=== PATIENT | male | born 1950 | race Caucasian/White ===

== ENCOUNTER 2017-06-13 14:34 | Outpatient (CLI) | payer MEDICARE, OTHER | END 2017-06-13 14:35 | disposition home or self-care (01) | DRG 554 | LOC: CONVCARE 14:34 | PROVIDERS: ATTEND Orthopaedic Surgery | DX: M17.0 Bilateral primary osteoarthritis of knee (principal) | CPT/HCPCS: 73564 ==

== ENCOUNTER 2017-07-04 10:03 | Inpatient (IN) | payer OTHER, MEDICARE ==
[2017-07-04] MEDS ORDERED: LACTATED RINGERS 1,000 ML IV ONE (11:00)
[2017-07-04] MEDS ORDERED: SCOPOLAMINE 1.5MG PATCH TD SCH (11:00)
[2017-07-04] MEDS: SODIUM CHLORIDE 0.9% FLUSH 10 ML SOL IV PRN (11:04)
[2017-07-04] MEDS ORDERED: LACTATED RINGERS 1,000 ML IV SCH (12:00)
[2017-07-04] MEDS ORDERED: PROPOFOL 500 MG/50 ML EMU IV ONE (12:10)
[2017-07-04] MEDS ORDERED: LIDOCAINE HCL 1% MPF SOL ONE (12:12)
[2017-07-04] MEDS ORDERED: MIDAZOLAM 2 MG/2 ML SOL ONE ×2 (12:13→14:57)
[2017-07-04] MEDS ORDERED: ONDANSETRON HCL 4 MG/2 ML SOL ONE (12:17)
[2017-07-04] MEDS ORDERED: METOCLOPRAMIDE HYDROCHLORIDE 5 MG/ML SOL ONE (12:17)
[2017-07-04] MEDS ORDERED: DEXAMETHASONE 20 MG/5 ML (4 MG/ML SOL) ONE (12:17)
[2017-07-04] MEDS ORDERED: HYDROMORPHONE 1 MG/ML SYRINGE ONE (12:18)
[2017-07-04] MEDS ORDERED: SODIUM CHLORIDE 20 ML 40 ML ONE (12:52)
[2017-07-04] MEDS ORDERED: CEFAZOLIN SODIUM 1 GM PDS ONE ×3 (13:48→21:51)
[2017-07-04] MEDS ORDERED: KETAMINE HYDROCHLORIDE 50 MG/ML SOL ONE (14:34)
[2017-07-04] MEDS: TRANEXAMIC ACID 100 MG/ML SOL ONE ×2 (14:38→16:30)
[2017-07-04] MEDS: BUPIVACAINE LIPOSOME 20 ML SUS ONE ×2 (14:42→16:00)
[2017-07-04] MEDS ORDERED: ONDANSETRON HCL 4 MG/2 ML SOL IV PRN (15:05)
[2017-07-04] MEDS ORDERED: ALUMINUM/MAGNESIUM 30 ML SUS PO PRN (15:05)
[2017-07-04] MEDS ORDERED: TEMAZEPAM 15MG 15 MG CAP PO PRN (15:05)
[2017-07-04] MEDS ORDERED: DIPHENHYDRAMINE 50 MG/ML SOL IV PRN (15:05)
[2017-07-04] MEDS ORDERED: FLEET ENEMA PR PRN (15:05)
[2017-07-04] MEDS ORDERED: BISACODYL 10 MG SUP PR PRN (15:05)
[2017-07-04] MEDS ORDERED: MORPHINE SULFATE 10 MG/ML SOL IM PRN (15:05)
[2017-07-04] MEDS ORDERED: ONDANSETRON 4 MG ODT BU PRN (15:05)
[2017-07-04] MEDS ORDERED: SODIUM CHLORIDE 0.9% 500 ML 500 ML IV PRN (15:05)
[2017-07-04] MEDS ORDERED: LORATADINE 10 MG TAB PO PRN (15:12)
[2017-07-04] MEDS ORDERED: HYDROMORPHONE 1 MG/ML SYRINGE IV PRN (15:30)
[2017-07-04] MEDS ORDERED: PROPOFOL 10 MG/ML EMU IV ONE (15:52)
[2017-07-04] MEDS: DEXTROSE/SALINE 0.45% 1,000 ML IV SCH ×2 (18:14)
[2017-07-04] MEDS: SODIUM CHLORIDE 0.9% FLUSH 10 ML SOL IV SCH (19:02)
[2017-07-04] MEDS: METOPROLOL TARTRATE 50 MG TAB PO SCH (20:37)
[2017-07-04] MEDS: SENNOSIDES A AND B 8.6 MG TAB PO SCH (20:37)
[2017-07-04] MEDS: FINASTERIDE 5 MG TAB PO SCH (20:38)
[2017-07-04] MEDS ORDERED: SODIUM CHLORIDE 0.9% 100 ML 100 ML IV ONE (21:51)
[2017-07-04] MEDS: APAP/OXYCODONE 325/5 TAB PO PRN (22:09)
[2017-07-04] MEDS: CEFAZOLIN SODIUM 1 GM PDS 2 GM in SODIUM CHLORIDE 0.9% 100 ML 100 ML IV SCH (22:09)
[2017-07-04] MEDS: TAMSULOSIN HYDROCHLORIDE 0.4 MG CAP PO SCH (22:10)
[2017-07-05] MEDS: SODIUM CHLORIDE 0.9% FLUSH 10 ML SOL IV SCH ×5 (00:13→23:45)
[2017-07-05] MEDS: APAP/OXYCODONE 325/5 TAB PO PRN ×7 (01:13→23:47)
[2017-07-05] MEDS ORDERED: SODIUM CHLORIDE 0.9% 100 ML 100 ML IV ONE (04:08)
[2017-07-05] MEDS ORDERED: CEFAZOLIN SODIUM 1 GM PDS ONE (04:08)
[2017-07-05] MEDS: DEXTROSE/SALINE 0.45% 1,000 ML IV SCH ×2 (05:01→16:19)
[2017-07-05] MEDS: CEFAZOLIN SODIUM 1 GM PDS 2 GM in SODIUM CHLORIDE 0.9% 100 ML 100 ML IV SCH (06:05)
[2017-07-05 07:25] LABS: MEAN CORPUSCULAR HGB CONC 34.8 gm/dl (32.0-36.0)
[2017-07-05] MEDS: RIVAROXABAN 10 MG TAB PO SCH (08:19)
[2017-07-05] MEDS: [UNRECOGNIZED DRUG - OTHER] PO SCH (08:19)
[2017-07-05] MEDS: CALCIUM CARBONATE 500 MG TAB PO SCH (08:19)
[2017-07-05] MEDS ORDERED: METOPROLOL TARTRATE 50 MG TAB PO SCH (09:00)
[2017-07-05] MEDS ORDERED: FINASTERIDE 5 MG PO SCH (09:00)
[2017-07-05] MEDS: METOPROLOL TARTRATE 50 MG TAB PO SCH (18:51)
[2017-07-05] MEDS: TAMSULOSIN HYDROCHLORIDE 0.4 MG CAP PO SCH (20:01)
[2017-07-05] MEDS: SENNOSIDES A AND B 8.6 MG TAB PO SCH (20:01)
[2017-07-05] MEDS: FINASTERIDE 5 MG TAB PO SCH (20:01)
[2017-07-06] MEDS: APAP/OXYCODONE 325/5 TAB PO PRN ×7 (03:41→22:31)
[2017-07-06] MEDS: SODIUM CHLORIDE 0.9% FLUSH 10 ML SOL IV SCH ×2 (07:18→15:13)
[2017-07-06] MEDS: [UNRECOGNIZED DRUG - OTHER] PO SCH (08:45)
[2017-07-06] MEDS: CALCIUM CARBONATE 500 MG TAB PO SCH (08:46)
[2017-07-06] MEDS: RIVAROXABAN 10 MG TAB PO SCH (08:46)
[2017-07-06] MEDS: DIAZEPAM 5 MG TAB PO PRN (08:48)
[2017-07-06] MEDS: MAGNESIUM HYDROXIDE 30 ML SUS PO PRN (08:48)
[2017-07-06] MEDS ORDERED: SODIUM CHLORIDE 0.9% 250 ML 250 ML IV ONE (16:30)
[2017-07-06] MEDS: METOPROLOL TARTRATE 50 MG TAB PO SCH (17:14)
[2017-07-06] MEDS: FINASTERIDE 5 MG TAB PO SCH (20:18)
[2017-07-06] MEDS: SENNOSIDES A AND B 8.6 MG TAB PO SCH (20:18)
[2017-07-06] MEDS: TAMSULOSIN HYDROCHLORIDE 0.4 MG CAP PO SCH (20:19)
[2017-07-07] MEDS: APAP/OXYCODONE 325/5 TAB PO PRN ×6 (02:41→20:34)
[2017-07-07 07:32] LABS: MEAN CORPUSCULAR HGB CONC 34.5 gm/dl (32.0-36.0)
[2017-07-07] MEDS: RIVAROXABAN 10 MG TAB PO SCH (08:18)
[2017-07-07] MEDS: CALCIUM CARBONATE 500 MG TAB PO SCH (08:18)
[2017-07-07] MEDS: [UNRECOGNIZED DRUG - OTHER] PO SCH (08:18)
[2017-07-07] MEDS: DIAZEPAM 5 MG TAB PO PRN ×2 (08:47→12:11)
[2017-07-07] MEDS: METOPROLOL TARTRATE 50 MG TAB PO SCH (17:12)
[2017-07-07] MEDS: FINASTERIDE 5 MG TAB PO SCH (20:34)
[2017-07-07] MEDS: TAMSULOSIN HYDROCHLORIDE 0.4 MG CAP PO SCH (20:34)
[2017-07-07] MEDS: SENNOSIDES A AND B 8.6 MG TAB PO SCH (20:34)
[2017-07-07] MEDS: SODIUM CHLORIDE 0.9% FLUSH 10 ML SOL IV PRN (20:41)
[2017-07-08] MEDS: APAP/OXYCODONE 325/5 TAB PO PRN ×5 (02:09→21:04)
[2017-07-08] MEDS: [UNRECOGNIZED DRUG - OTHER] PO SCH (08:50)
[2017-07-08] MEDS: MAGNESIUM HYDROXIDE 30 ML SUS PO PRN (08:50)
[2017-07-08] MEDS: RIVAROXABAN 10 MG TAB PO SCH (08:51)
[2017-07-08] MEDS: CALCIUM CARBONATE 500 MG TAB PO SCH (08:51)
[2017-07-08 14:46] VITALS: RESP 18
[2017-07-08] MEDS: METOPROLOL TARTRATE 50 MG TAB PO SCH (17:01)
[2017-07-08] MEDS: FINASTERIDE 5 MG TAB PO SCH (21:05)
[2017-07-08] MEDS: TAMSULOSIN HYDROCHLORIDE 0.4 MG CAP PO SCH (21:05)
[2017-07-08] MEDS: SENNOSIDES A AND B 8.6 MG TAB PO SCH (21:06)
[2017-07-08] MEDS: DIAZEPAM 5 MG TAB PO PRN (22:48)
[2017-07-09] MEDS: APAP/OXYCODONE 325/5 TAB PO PRN ×5 (03:36→17:39)
[2017-07-09 06:42] VITALS: O2SAT 92
[2017-07-09] MEDS: [UNRECOGNIZED DRUG - OTHER] PO SCH (08:28)
[2017-07-09] MEDS: CALCIUM CARBONATE 500 MG TAB PO SCH (08:28)
[2017-07-09] MEDS: RIVAROXABAN 10 MG TAB PO SCH (08:29)
[2017-07-09] MEDS: DIAZEPAM 5 MG TAB PO PRN (08:33)
[2017-07-09 16:10] VITALS: BP 132/80; PULSE 99; TEMP 97.8
[2017-07-09] MEDS: METOPROLOL TARTRATE 50 MG TAB PO SCH (17:39)
[2017-07-10] MEDS ORDERED: DIAZEPAM 5 MG TAB PO ONE (04:25)
== END 2017-07-09 17:40 | disposition swing bed (61) | DRG 462 ==
LOC: ACUTE CARE 10:03
PROVIDERS: ADMIT Orthopaedic Surgery; ATTEND Orthopaedic Surgery
PROC: 0SRC0J9 Replacement of Right Knee Joint with Synthetic Substitute, Cemented, Open Approach (ICD-10-PCS; 2017-07-04)
PROC: 0SRD0J9 Replacement of Left Knee Joint with Synthetic Substitute, Cemented, Open Approach (ICD-10-PCS; principal; 2017-07-04 12:30)
PROC: F01L5ZZ Range of Motion and Joint Integrity Assessment of Musculoskeletal System - Lower Back / Lower Extremity (ICD-10-PCS; 2017-07-05)
PROC: F02Z1ZZ Dressing Assessment (ICD-10-PCS; 2017-07-05)
PROC: F02Z0ZZ Bathing/Showering Assessment (ICD-10-PCS; 2017-07-05)
PROC: F02Z3ZZ Grooming/Personal Hygiene Assessment (ICD-10-PCS; 2017-07-05)
PROC: 30233N1 Transfusion of Nonautologous Red Blood Cells into Peripheral Vein, Percutaneous Approach (ICD-10-PCS; 2017-07-06)
DX: M17.0 Bilateral primary osteoarthritis of knee (principal); I10 Essential (primary) hypertension; Z96.653 Presence of artificial knee joint, bilateral; R42 Dizziness and giddiness; N40.1 Benign prostatic hyperplasia with lower urinary tract symptoms; R35.0 Frequency of micturition; Z79.899 Other long term (current) drug therapy; R00.2 Palpitations; R00.0 Tachycardia, unspecified; D64.9 Anemia, unspecified
CPT/HCPCS: 36415; 73560; 85018; 85027; 94150; 99070; J0690; J1100; J2250; J2405; J2765; P9016; A6232; J1170; J2001; J2704; Q3014

== ENCOUNTER 2017-08-22 08:47 | Outpatient (CLI) | payer OTHER ==
[2017-07-11 08:40] VITALS: O2SAT 93
== END 2017-08-22 08:48 | disposition home or self-care (01) | DRG 561 ==
LOC: CONVCARE 08:47
PROVIDERS: ATTEND Orthopaedic Surgery
DX: Z47.1 Aftercare following joint replacement surgery (principal); Z96.653 Presence of artificial knee joint, bilateral
CPT/HCPCS: 73562

== ENCOUNTER 2018-07-10 14:47 | Outpatient (CLI) | payer OTHER, MEDICARE ==
[2017-07-11 08:40] VITALS: O2SAT 93
== END 2018-07-10 14:48 | disposition home or self-care (01) | DRG 566 ==
LOC: CONVCARE 14:47
PROVIDERS: ATTEND Orthopaedic Surgery
DX: Z96.653 Presence of artificial knee joint, bilateral (principal); Z47.1 Aftercare following joint replacement surgery
CPT/HCPCS: 73562